=== PATIENT | male | born 1975 ===

== ENCOUNTER 2018-04-06 14:54 | Emergency (ER) | payer MEDICARE, MEDICAID ==
[2018-04-06 14:56] VITALS: BMI 23.8
[2018-04-06 15:00] VITALS: RESP 18
[2018-04-06 17:13] VITALS: BP 102/60; PULSE 83; TEMP 99; O2SAT 96
--- NOTE | 2018-04-06 17:15 | ED PDOC ---
Arrival/HPI - General Chief Complaint: Flu-like Symptoms Time Seen by Provider: 04/06/18 15:15 Historian: Patient - History of Present Illness Narrative History of Present Illness (Text): 04/06/18 17:09 42-year-old male presents today with a 2 to three-day history of cough nasal congestion sore throat and fevers of 102. Patient denies abdominal pain. No nausea or vomiting. Patient states she's noticed some slight diarrhea from his ileostomy. Patient denies chest pain or shortness of breath. Patient states he got his flu shot in November. Patient is complaining of body aches. Patient states he took Tylenol over 4 hours ago. Patient denies decreased appetite. No sick contacts. No other complaints Past Medical History - Provider Review Nursing Documentation Reviewed: Yes - Travel History Have you recently traveled outside [place] w/in the past 3 mons?: No - Tetanus Immunization Tetanus Immunization: Unknown - Cardiac Hx Pacemaker: No - Pulmonary Hx Respiratory Disorders: No - Neurological Hx Paralysis: No - HEENT Hx HEENT Disorder: No - Renal Hx Kidney Stones: Yes (admitted here at [facility] about 2 months ago and I passed the stone " very small) - Endocrine/Metabolic Hx Endocrine Disorders: No - Hematological/Oncological Hx Blood Transfusions: Yes (2005) Hx Blood Transfusion Reaction: No - Integumentary Hx Dermatological Disorder: No - Musculoskeletal/Rheumatological Hx Musculoskeletal Disorders: Yes (RA) - Gastrointestinal Hx Crohn's Disease: Yes Hx Gastroesophageal Reflux: Yes Hx Ileostomy: Yes - Genitourinary/Gynecological Hx Genitourinary Disorders: No - Psychiatric Hx Emotional Abuse: No Hx Physical Abuse: No Hx Substance Use: No - Anesthesia Hx Anesthesia Reactions: No Hx Malignant Hyperthermia: No - Suicidal Assessment Feels Threatened In Home Enviroment: No Family/Social History - Physician Review Nursing Documentation Reviewed: Yes Family/Social History: Unknown Family HX Smoking Status: Never Smoked Hx Alcohol Use: No Hx Substance Use: No Allergies/Home Meds Allergies/Adverse Reactions: Allergies No Known Allergies Allergy (Verified 12/19/13 03:27) Home Medications: Home Meds Medication Instructions Recorded Confirmed Folic Acid 1 mg PO DAILY 12/16/15 04/23/16 Hydroxychloroquine Sulfate 200 mg PO BID 12/16/15 04/23/16 [Plaquenil] Methotrexate 6 tab PO SUN 12/16/15 04/23/16 inFLIXimab [Remicade] 700 mg IV Q56D 12/16/15 04/23/16 traMADol [Ultram] 50 mg PO QID PRN 12/16/15 04/23/16 Cholecalciferol (Vitamin D3) 50,000 unit PO SUN 12/27/15 04/23/16 [Vitamin D3] Diclofenac Sodium [Voltaren] 25 mg TOP BID 04/16/16 04/23/16 Mesalamine [Canasa] 500 mg RC BID 04/16/16 04/23/16 Potassium Citrate/Citric Acid [Pot 1,620 mg PO BID 04/16/16 04/23/16 Citrate-Citric Acid Packet] Review of Systems - Review of Systems Constitutional: Fatigue, Fevers ENT: Sore Throat, Sinus Congestion Respiratory: Cough. absent: SOB Cardiovascular: absent: Chest Pain, Palpitations Gastrointestinal: Diarrhea. absent: Abdominal Pain, Constipation, Nausea, Vomiting Genitourinary Male: absent: Dysuria, Frequency Musculoskeletal: Myalgias. absent: Arthralgias, Back Pain, Neck Pain Skin: absent: Rash, Pruritis Neurological: Headache. absent: Dizziness Psychiatric: absent: Anxiety, Depression Physical Exam Vital Signs Reviewed: Yes Vital Signs Temp Pulse Resp BP Pulse Ox 04/06/18 15:40 99.7 F H 04/06/18 14:54 99.7 F H 116 H 18 121/76 98 Temperature: Afebrile Blood Pressure: Normal Pulse: Tachycardic Respiratory Rate: Normal Appearance: Positive for: Well-Appearing, Non-Toxic, Comfortable Pain Distress: None Mental Status: Positive for: Alert and Oriented X 3 - Systems Exam Head: Present: Atraumatic Extroacular Muscles: Present: EOMI Conjunctiva: Present: Normal Ears: Present: Normal, NORMAL TM Mouth: Present: Moist Mucous Membranes. No: Drooling, Trismus Pharnyx: Present: Normal. No: ERYTHEMA, EXUDATE, TONSILS ENLARGED, Peritonsilar Swelling, Uvular Deviation, Muffled/Hoarse Voice Nose (External): Present: Atraumatic Nose (Internal): Present: Normal Inspection Neck: Present: Normal Range of Motion, Trachea Midline Respiratory/Chest: Present: Clear to Auscultation, Good Air Exchange. No: Respiratory Distress, Accessory Muscle Use Cardiovascular: Present: Regular Rate and Rhythm, Normal S1, S2. No: Murmurs Abdomen: Present: Other (ileostomy in tact. no tenderness, no erythema. ). No: Tenderness, Distention Back: Present: Normal Inspection. No: CVA Tenderness, Midline Tenderness, Paraspinal Tenderness Neurological: Present: GCS=15 Skin: Present: Warm, Dry, Normal Color. No: Rashes Psychiatric: Present: Alert, Oriented x 3 Medical Decision Making ED Course and Treatment: 04/06/18 17:12 Patient is nontoxic well-appearing in no distress. low grade fever, slightly tachycardic. tylenol given po rapid flu; negative cxr; no infiltrate. no effusion tamiflu po I advised follow up with primary care physician within the next 2 days. I advised taking medications as prescribed. I advised taking Tylenol every 4 hours for fever reduction. I advised increase fluids and return if symptoms worsen persist or if new symptoms develop. Patient verbalizes understanding of discharge instructions and need for immediate followup. all aspects of this case were discussed the attending of record. IMPRESSION; influenza like illness tylenol every 4 hours as needed for pain/fever reduction tamiflu; 1 tablet twice daily x 5 days. Increase fluids Followup with primary care physician the next 2 days Return immediately if symptoms worsen, persist or if new symptoms develop: high fevers, shortness of breath, chest pain, dizziness, weakness, abdominal pain or if any other concerning symptoms develop. - Lab Interpretations Lab Results: Lab Results 04/06/18 15:41: Influenza Typ A,B (EIA) Negative for flu a/b - RAD Interpretation Radiology Orders: 04/06/18 15:35 CHEST TWO VIEWS (PA/LAT) [RAD] Stat - Medication Orders Current Medication Orders: Discontinued Medications Acetaminophen (Tylenol 325mg Tab) 975 mg PO STAT STA Stop: 04/06/18 15:36 Last Admin: 04/06/18 15:40 Dose: 975 mg MAR Pain/Vitals Document 04/06/18 15:40 LA (Rec: 04/06/18 15:41 LA [id number]) Pain Reassessment Is This A Pain ReAssessment? No Sleep Is patient sleeping during reassessment? No Presence of Pain Presence of Pain Yes Location Pain Location Body Site Generalized Description Intermittent Vitals Temperature (97.6 F-99.6 F) 99.7 F Temperature Source Oral Disposition/Present on Arrival - Present on Arrival Any Indicators Present on Arrival: No History of DVT/PE: No History of Uncontrolled Diabetes: No Urinary Catheter: No History of Decub. Ulcer: No History Surgical Site Infection Following: None - Disposition Have Diagnosis and Disposition been Completed?: Yes Diagnosis: Influenza-like illness Disposition: HOME/ ROUTINE Disposition Time: 17:16 Patient Plan: Discharge Patient Problems: Current Active Problems Problem Status Onset Influenza-like illness Acute Condition: GOOD Discharge Instructions (ExitCare): Flu Additional Instructions: tylenol every 4 hours as needed for pain/fever reduction tamiflu; 1 tablet twice daily x 5 days. Increase fluids Followup with primary care physician the next 2 days Return immediately if symptoms worsen, persist or if new symptoms develop: high fevers, shortness of breath, chest pain, dizziness, weakness, abdominal pain or if any other concerning symptoms develop. Prescriptions: Oseltamivir Cap [Tamiflu] 75 mg PO BID #10 cap Referrals: Florence Segundo MD [Primary Care Provider] - Follow up with primary Forms: [employer] (Icelandic), WORK NOTE
--- NOTE | 2018-04-06 18:12 | RAD ---
Date of service: 04/06/2018 HISTORY: Cough and fever COMPARISON: 12/17/2017. TECHNIQUE: Chest PA and lateral FINDINGS: LINES AND TUBES: None. LUNG AND PLEURA: The lungs are well inflated and clear. No pleural effusion or pneumothorax. HEART AND MEDIASTINUM: The heart is not enlarged. No aortic atherosclerotic calcification present. The hilar and mediastinal contours are within normal limits. SKELETAL STRUCTURES: The bony structures are within normal limits for the patient's age. VISUALIZED UPPER ABDOMEN: Normal. OTHER FINDINGS: None. IMPRESSION: No active pulmonary disease.
== END 2018-04-06 17:45 | disposition home or self-care (01) ==
LOC: ED 14:54
DX: J11.1 Influenza due to unidentified influenza virus with other respiratory manifestations (principal)

== ENCOUNTER 2018-04-30 05:54 | Emergency (ER) | payer MEDICARE, MEDICAID ==
[2018-04-30 05:56] VITALS: BMI 23.8
[2018-04-30 06:06] VITALS: RESP 18; TEMP 97.9
--- NOTE | 2018-04-30 06:13 | ED PDOC ---
Arrival/HPI - General Time Seen by Provider: 04/30/18 06:05 - History of Present Illness Narrative History of Present Illness (Text): Patient reports acute onset of bilateral flank pain which started about 5 hours ago. Also reports nausea and vomiting, and urinary frequency. No fever. States that he has a history of recurrent kidney stones. Just saw urology 3 days ago for a routine visit, had a renal ultrasound done which showed bilateral renal calculi, and is scheduled to have a CT abd/pelvis in a week. However now he has developed pain. Past Medical History - Provider Review Nursing Documentation Reviewed: Yes JOSE Report Viewed: Yes - Infectious Disease Hx of Infectious Diseases: None - Tetanus Immunization Tetanus Immunization: Unknown - Cardiac Hx Pacemaker: No - Pulmonary Hx Respiratory Disorders: No - Neurological Hx Paralysis: No - HEENT Hx HEENT Disorder: No - Renal Hx Kidney Stones: Yes (admitted here at [facility] about 2 months ago and I passed the stone " very small) - Endocrine/Metabolic Hx Endocrine Disorders: No - Hematological/Oncological Hx Blood Transfusions: Yes (2005) Hx Blood Transfusion Reaction: No - Integumentary Hx Dermatological Disorder: No - Musculoskeletal/Rheumatological Hx Musculoskeletal Disorders: Yes (RA) - Gastrointestinal Hx Crohn's Disease: Yes Hx Gastroesophageal Reflux: Yes Hx Ileostomy: Yes - Genitourinary/Gynecological Hx Genitourinary Disorders: No - Psychiatric Hx Emotional Abuse: No Hx Physical Abuse: No Hx Substance Use: No - Anesthesia Hx Anesthesia Reactions: No Hx Malignant Hyperthermia: No - Suicidal Assessment Feels Threatened In Home Enviroment: No Family/Social History - Physician Review Nursing Documentation Reviewed: Yes Family/Social History: Unknown Family HX Smoking Status: Never Smoked Hx Alcohol Use: No Hx Substance Use: No Allergies/Home Meds Allergies/Adverse Reactions: Allergies No Known Allergies Allergy (Verified 04/30/18 06:08) Home Medications: Home Meds Medication Instructions Recorded Confirmed Folic Acid 1 mg PO DAILY 12/16/15 04/23/16 Hydroxychloroquine Sulfate 200 mg PO BID 12/16/15 04/23/16 [Plaquenil] Methotrexate 6 tab PO SUN 12/16/15 04/23/16 inFLIXimab [Remicade] 700 mg IV Q56D 12/16/15 04/23/16 traMADol [Ultram] 50 mg PO QID PRN 12/16/15 04/23/16 Cholecalciferol (Vitamin D3) 50,000 unit PO SUN 12/27/15 04/23/16 [Vitamin D3] Diclofenac Sodium [Voltaren] 25 mg TOP BID 04/16/16 04/23/16 Mesalamine [Canasa] 500 mg RC BID 04/16/16 04/23/16 Potassium Citrate/Citric Acid [Pot 1,620 mg PO BID 04/16/16 04/23/16 Citrate-Citric Acid Packet] Review of Systems - Physician Review All systems were reviewed & negative as marked: Yes - Review of Systems Constitutional: Normal Respiratory: Normal Cardiovascular: Normal Gastrointestinal: Nausea, Vomiting Genitourinary Male: Frequency Musculoskeletal: Normal Skin: Normal Neurological: Normal Physical Exam Vital Signs Reviewed: Yes Vital Signs Temp Pulse Resp BP Pulse Ox 04/30/18 06:05 97.9 F 80 18 102/62 100 Temperature: Afebrile Blood Pressure: Normal Pulse: Regular Respiratory Rate: Normal Appearance: Positive for: Uncomfortable (painful distress) - Systems Exam Head: Present: Atraumatic Extroacular Muscles: Present: EOMI Mouth: Present: Moist Mucous Membranes Respiratory/Chest: Present: Clear to Auscultation Cardiovascular: Present: Regular Rate and Rhythm Abdomen: Present: Tenderness (mild suprapubic), Other (colostomy) Back: Present: CVA Tenderness (bilateral) Upper Extremity: Present: Normal Inspection Lower Extremity: Present: Normal Inspection Neurological: Present: GCS=15 Skin: Present: Warm, Dry, Normal Color. No: Rashes Psychiatric: Present: Alert, Oriented x 3 Disposition/Present on Arrival - Present on Arrival History of DVT/PE: No History of Uncontrolled Diabetes: No Urinary Catheter: No History of Decub. Ulcer: No History Surgical Site Infection Following: None - Disposition
[2018-04-30] MEDS ORDERED: Sodium Chloride 0.9% 1,000 ML IV STA (06:14)
[2018-04-30] MEDS ORDERED: Morphine 4 mg/ml ISec IVP STA (06:30)
[2018-04-30] MEDS ORDERED: Morphine 4 mg/ml ISec ONE (06:31)
[2018-04-30 06:42] LABS: BASO # 0.04 K/mm3 (0.0-2.0); BASO % 0.6 % (0.0-3.0); EOS # 0.3 (0.0-0.7); HEMOGLOBIN 11.6 g/dL (14.0-18.0); LYMPH # 2.6 (1.2-3.4); LYMPH % 37.3 % (22.0-35.0); MEAN CELL VOLUME 76.7 fl (80.0-105.0); MEAN CORPUSCULAR HEMOGLOBIN 23.1 pg (25.0-35.0); MEAN CORPUSCULAR HGB CONC 30.1 g/dl (31.0-37.0); MEAN PLATELET VOLUME 11.2 fl (7.0-11.0); MONO # 0.9 (0.1-0.6); MONO % 12.3 % (1.0-6.0); RBC 5.02 10^6/uL (3.5-6.1); RED CELL DISTRIBUTION WIDTH 15.8 % (11.5-14.5); WHITE BLOOD COUNT 6.9 10^3/uL (4.5-11.0)
--- NOTE | 2018-04-30 06:58 | ED PDOC ---
Physical Exam Vital Signs Reviewed: Yes Vital Signs Temp Pulse Resp BP Pulse Ox 04/30/18 06:05 97.9 F 80 18 102/62 100 Temperature: Afebrile Blood Pressure: Normal Pulse: Regular Respiratory Rate: Normal Medical Decision Making ED Course and Treatment: 04/30/18 06:56 Patient endorsed to me by Dr. Armenta. Patient is a 42 year old male presenting to the emergency room complaining of flank pain. Pending CT and labs. - RAD Interpretation Radiology Orders: 04/30/18 06:14 ABD & PELVIS W/O PO OR IV CONT [CT] Stat - Medication Orders Current Medication Orders: Sodium Chloride (Sodium Chloride 0.9%) 1,000 mls @ 999 mls/hr IV .Q1H1M STA Stop: 04/30/18 07:14 Last Admin: 04/30/18 06:25 Dose: 999 mls/hr eMAR Start Stop Document 04/30/18 06:25 IT (Rec: 04/30/18 06:25 IT [id number]) Intravenous Solution Start Date 04/30/18 Start Time 06:25 Discontinued Medications Ketorolac Tromethamine (Toradol) 30 mg IVP STAT STA Stop: 04/30/18 06:15 Last Admin: 04/30/18 06:25 Dose: 30 mg MAR Pain Assessment Document 04/30/18 06:25 IT (Rec: 04/30/18 06:25 IT [id number]) Pain Reassessment Is this a pain reassessment? No Sleep Is patient sleeping during reassessment? No Presence of Pain Presence of Pain Yes Pain Scale Used Protocol: [facility] Pain Scale Used Numeric IVP Administration Document 04/30/18 06:25 IT (Rec: 04/30/18 06:25 IT [id number]) Charges for Administration # of IVP Administrations 1 Morphine Sulfate (Morphine) 4 mg IVP STAT STA Stop: 04/30/18 06:31 Last Admin: 04/30/18 06:35 Dose: 4 mg MAR Pain Assessment Document 04/30/18 06:35 IT (Rec: 04/30/18 06:35 IT [id number]) Pain Reassessment Is this a pain reassessment? No Sleep Is patient sleeping during reassessment? No Presence of Pain Presence of Pain Yes Pain Scale Used Protocol: [facility] Pain Scale Used Numeric Location Left, Right or Bilateral Right IVP Administration Document 04/30/18 06:35 IT (Rec: 04/30/18 06:35 IT [id number]) Charges for Administration # of IVP Administrations 1 Ondansetron HCl (Zofran Inj) 4 mg IVP STAT STA Stop: 04/30/18 06:15 Last Admin: 04/30/18 06:25 Dose: 4 mg IVP Administration Document 04/30/18 06:25 IT (Rec: 04/30/18 06:25 IT [id number]) Charges for Administration # of IVP Administrations 1 - Scribe Statement The provider has reviewed the documentation as recorded by the Brendaibalberto Traylor All medical record entries made by the Scribe were at my direction and personally dictated by me. I have reviewed the chart and agree that the record accurately reflects my personal performance of the history, physical exam, medical decision making, and the department course for this patient. I have also personally directed, reviewed, and agree with the discharge instructions and disposition. Disposition/Present on Arrival - Present on Arrival Any Indicators Present on Arrival: No History of DVT/PE: No History of Uncontrolled Diabetes: No Urinary Catheter: No History of Decub. Ulcer: No History Surgical Site Infection Following: None - Disposition Have Diagnosis and Disposition been Completed?: Yes Diagnosis: Kidney stone Disposition: HOME/ ROUTINE Disposition Time: 09:24 Condition: GOOD Discharge Instructions (ExitCare): Kidney Stones in Adults Prescriptions: Ibuprofen [Motrin] 600 mg PO Q6 5 Days #20 tab Referrals: Florence Segundo MD [Primary Care Provider] - Follow up with primary Forms: [employer] (Kyr[place]z)
[2018-04-30 07:06] LABS: BLOOD UREA NITROGEN 14 mg/dL (7-21); CALCIUM 9.3 mg/dL (8.4-10.5); GFR NON-AFRICAN AMERICAN > 60
[2018-04-30 07:48] LABS: URINE BILIRUBIN NEGATIVE (NEGATIVE); URINE BLOOD LARGE (NEGATIVE); URINE GLUCOSE (UA) NEGATIVE (NEGATIVE); URINE LEUKOCYTE ESTERASE NEGATIVE Leu/uL (NEGATIVE); URINE PROTEIN NEGATIVE mg/dL (<30 mg/dL); URINE UROBILINOGEN 0.2 E.U./dL (<1 E.U./dL)
[2018-04-30 07:50] LABS: URINE COLOR YELLOW (YELLOW)
[2018-04-30 07:56] LABS: URINE APPEARANCE SL CLOUDY (CLEAR); URINE RBC TNTC /hpf (0-2)
[2018-04-30 07:57] LABS: URINE BACTERIA FEW /hpf; URINE CALCIUM OXALATE CRYSTALS FEW /hpf; URINE WBC 0 - 2 /hpf (0-6)
--- NOTE | 2018-04-30 08:29 | CT ---
Date of service: 04/30/2018 PROCEDURE: CT Abdomen and Pelvis without intravenous contrast HISTORY: r/o kidney stone COMPARISON: Comparison is made to the previous CT of the abdomen and pelvis with contrast dated 02/07/2014 TECHNIQUE: Axial and reformatted coronal and sagittal CT images of the abdomen and pelvis were obtained without IV or oral contrast administration.. Contrast dose: 0 Radiation dose: Total exam DLP = 340.82 mGy-cm. This CT exam was performed using one or more of the following dose reduction techniques: Automated exposure control, adjustment of the mA and/or kV according to patient size, and/or use of iterative reconstruction technique. FINDINGS: LOWER THORAX: Unremarkable. LIVER: Unremarkable. No gross lesion or ductal dilatation. GALLBLADDER AND BILE DUCTS: Small gallstone is seen without evidence of acute cholecystitis. PANCREAS: Unremarkable. No gross lesion or ductal dilatation. SPLEEN: Unremarkable. ADRENALS: Unremarkable. No mass. KIDNEYS AND URETERS: There are bilateral nonobstructing renal calculi larger and more on the left. The largest calculus in the left kidney is seen at the midpole measures 10.7 millimeter in the transverse diameter. There is mild dilatation of the left kidney collecting system without definite evidence of obstructing ureteral calculus. VASCULATURE: Unremarkable. No aortic aneurysm. No aortic atherosclerotic calcification or mural plaque present. BOWEL: The patient is status post right colectomy and left-sided colostomy. There is no evidence of bowel obstruction. The stomach is not distended therefore cannot be evaluated. There is a small hiatus hernia seen. APPENDIX: The appendix is likely resected with the right colon PERITONEUM: Unremarkable. No free fluid. No free air. LYMPH NODES: Unremarkable. No enlarged lymph nodes. BLADDER: The bladder is not fully distended therefore cannot be evaluated. Possible mild urinary bladder wall thickening. REPRODUCTIVE: The prostate and seminal vesicles are mildly enlarged. BONES: No acute fracture. OTHER FINDINGS: None. IMPRESSION: Bilateral nonobstructing renal calculi larger and more on the left. The largest calculus seen at the midpole of the left kidney measures 10.7 millimeter in the transverse diameter. Mildly dilated collecting system of the left kidney without definite evidence of obstructing ureter stone. Additional findings as discussed above.
[2018-04-30 09:00] VITALS: BP 107/71; PULSE 72
[2018-04-30 09:24] VITALS: O2SAT 99
== END 2018-04-30 09:23 | disposition home or self-care (01) ==
LOC: ED 05:54
DX: N20.0 Calculus of kidney (principal)
CPT/HCPCS: 74176; 80048; 81001; 85025; 96374; 96375; 99284; J1885; J2270; J2405; J7030